=== PATIENT | female | born 1965 | race African-American/Black ===

== ENCOUNTER 2020-10-17 02:01 | Emergency (ER) | payer MEDICAID ==
[~2020-10-17] VITALS: Ht 167.6 cm; Wt 72.6 kg
[2020-10-17 02:01] VITALS: BP_SYST 160
--- NOTE | 2020-10-17 03:28 | NUR ---
Pt did not want to wait. Patient left without being seen. No further treatment provided. ER MD aware
== END 2020-10-17 03:28 | disposition left against medical advice (07) ==
LOC: SED 02:01
DX: R06.02 Shortness of breath (principal); Z53.21 Procedure and treatment not carried out due to patient leaving prior to being seen by health care provider
CPT/HCPCS: 71045